=== PATIENT | male | born 1985 | race Caucasian/White ===

== ENCOUNTER 2016-11-30 18:03 | Emergency (ER) | payer SELFPAY ==
[2016-11-30] MEDS ORDERED: ASPIRIN 81 MG CHEWABLE TABLET PO ONE (18:34)
[2016-11-30] MEDS ORDERED: 0.9 % SODIUM CHLORIDE 1,000 ML BAG IV ONE (18:37)
[2016-11-30 18:49] LABS: BASO % 0.5 % (0-6); HEMATOCRIT 46.3 % (42.0-52.0); HEMOGLOBIN 15.7 gm/dl (14.0-18.0); LYMPH % 29.4 % (16-45); MEAN CELL VOLUME 86.4 fl (81-97); MEAN CORPUSCULAR HEMOGLOBIN 29.3 pg (27-33); MEAN CORPUSCULAR HGB CONC 33.9 g/dl (32-36); MEAN PLATELET VOLUME 9.7 fl (7.4-10.4); MONO % 8.1 % (0-9); PLATELET COUNT 345 K/uL (130-400); RED BLOOD COUNT 5.36 M/uL (4.40-5.70); RED CELL DISTRIBUTION WIDTH 13.2 % (11.5-14.5); WHITE BLOOD COUNT W/O DIFF 8.9 K/uL (4.2-12.2)
[2016-11-30 19:00] LABS: ANION GAP 12.2 (7-16); BLOOD UREA NITROGEN 11 mg/dL (9-20); CARBON DIOXIDE 25.8 mmol/L (22-30); CREATINE PHOSPHOKINASE 138 U/L (55-170); CREATININE 0.9 mg/dL (0.66-1.25); EST GLOMERULAR FILTRATION RATE > 60 ml/min; GLUCOSE,RANDOM 105 mg/dL (70-110)
[2016-11-30 19:10] LABS: URINE APPEARANCE CLEAR; URINE BILIRUBIN NEGATIVE (NEGATIVE); URINE BLOOD NEGATIVE (NEGATIVE); URINE COLOR YELLOW; URINE GLUCOSE (UA) NEGATIVE (NEGATIVE); URINE KETONE NEGATIVE (NEGATIVE); URINE LEUKOCYTE ESTERASE NEGATIVE (NEGATIVE); URINE NITRITE NEGATIVE (NEGATIVE); URINE PROTEIN NEGATIVE (NEGATIVE); URINE UROBILINOGEN 0.2 E.U./dL (0.20 - 1.00)
[2016-11-30 19:11] LABS: BARBITURATE SCREEN URINE NOT DETECTED; TRICYCLIC ANTIDEPRESSANT SCRN NOT DETECTED
[2016-11-30 19:12] LABS: AMPHETAMINE SCREEN URINE DETECTED; BENZODIAZEPINE SCREEN URINE NOT DETECTED; COCAINE SCREEN URINE NOT DETECTED; METHADONE SCREEN URINE NOT DETECTED; METHAMPHETAMINE SCREEN DETECTED; OPIATE SCREEN URINE NOT DETECTED; OXYCODONE SCREEN URINE NOT DETECTED; PHENCYCLIDINE SCREEN URINE NOT DETECTED; PROPOXYPHENE SCREEN URINE NOT DETECTED; THC SCREEN URINE DETECTED
[2016-11-30 19:12] LABS: CKMB 2.2 ug/L (0-6)
[2016-11-30 19:13] LABS: TROPONIN I < 0.012 ng/mL (0.00-0.034)
--- NOTE | 2016-11-30 19:18 | Emergency Department Record ---
History of Present Illness - General Chief Complaint: Shortness of breath Stated Complaint: CHEST HEAVINESS/SOB Time Seen by Provider: 11/30/16 18:34 Source: Patient Mode of Arrival: Ambulatory Limitations: No limitations - History of Present Illness Initial Comments: pt comes in c/o sob, cp, l leg numbness. he started feeling like this 24hours ago. he denies back pain. he admits to smoking tobacco and marijuana. he states he has felt out of it and foggy. MD Complaint: Chest pain, Shortness of breath Onset/Timin -: Days(s) Radiation: Other Severity scale (1-10): 4 Consistency: Constant Improves With: Nothing Worsens With: Nothing Associated Symptoms: Cough, Palpitations, Parasthesias, Other Treatments Prior to Arrival: None - Related Data Home Medications Medication Instructions Recorded Confirmed Last Taken No Home Med [NO HOME MEDS] 11/30/16 11/30/16 Unknown Allergies Allergy/AdvReac Type Severity Reaction Status Date / Time methylphenidate HCl Allergy ANAPHYLAXIS Verified 11/30/16 18:19 [From Ritalin] Travel Screening - Travel/Exposure Within Last 30 Days Have you traveled within the last 30 days?: No Review of Systems Reviewed: No additional complaints except as noted below Constitutional: Reports: As per HPI. Denies: Chills, Fever, Malaise, Night sweats, Weakness, Weight change Eyes: Reports: As per HPI. Denies: Eye discharge, Eye pain, Photophobia, Vision change ENT: Reports: As per HPI. Denies: Congestion, Dental pain, Ear pain, Epistaxis , Hearing loss, Throat pain Respiratory: Reports: As per HPI. Denies: Cough, Dyspnea, Hemoptysis, Stridor, Wheezes Cardiovascular: Reports: As per HPI. Denies: Arrhythmia, Chest pain, Dyspnea on exertion, Edema, Murmurs, Orthopnea, Palpitations, Paroxysmal nocturnal dyspnea, Rheumatic Fever, Syncope Endocrine: Reports: As per HPI. Denies: Fatigue, Heat or cold intolerance, Polydipsia, Polyuria Gastrointestinal: Reports: As per HPI. Denies: Abdominal pain, Constipation, Diarrhea, Hematemesis, Hematochezia, Melena, Nausea, Vomiting Genitourinary: Reports: As per HPI. Denies: Dysuria, Frequency, Hematuria, Incontinence, Retention, Testicular pain, Testicular mass, Urgency Musculoskeletal: Reports: As per HPI. Denies: Arthralgia, Back pain, Gout, Joint swelling, Myalgia, Neck pain Skin: Reports: As per HPI. Denies: Bruising, Change in color, Change in hair/ nails, Lesions, Pruritus, Rash Neurological: Reports: As per HPI. Denies: Abnormal gait, Confusion, Headache, Numbness, Paresthesias, Seizure, Tingling, Tremors, Vertigo, Weakness Psychiatric: Reports: As per HPI. Denies: Anxiety, Auditory hallucinations, Depression, Homicidal thoughts, Suicidal thoughts, Visual hallucinations Hematological/Lymphatic: Reports: As per HPI. Denies: Anemia, Blood Clots, Easy bleeding, Easy bruising, Swollen glands Past Medical History - SOCIAL HISTORY Smoking Status: Current every day smoker Alcohol Use: Rare Drug Use Detail:: Marijuana - RESPIRATORY Hx Respiratory Disorders: No - CARDIOVASCULAR Hx Cardio Disorders: No - NEURO Hx Neuro Disorders: No - GI Hx GI Disorders: No - Hx Genitourinary Disorders: No - ENDOCRINE Hx Endocrine Disorders: No - MUSCULOSKELETAL Hx Musculoskeletal Disorders: No - PSYCH Hx Psych Problems: No - HEMATOLOGY/ONCOLOGY Hx Hematology/Oncology Disorders: No Family Medical History Any Significant Family History?: Yes Hx Diabetes: Grandparents Physical Exam - General General Appearance: Alert, Oriented x3, Cooperative, Mild distress - Head Head exam: Normal inspection - Eye Eye exam: Normal appearance, PERRL, EOMI Pupils: Normal accommodation - ENT ENT exam: Normal exam, Mucous membranes moist, Normal external ear exam, Normal orophraynx, TM's normal bilaterally Ear exam: Normal external inspection. negative: External canal tenderness Nasal Exam: Normal inspection. negative: Discharge, Sinus tenderness Mouth exam: Normal external inspection, Tongue normal Teeth exam: Normal inspection. negative: Dental caries Throat exam: Normal inspection. negative: Tonsillar erythema, Tonsillar exudate - Neck Neck exam: Normal inspection, Full ROM. negative: Tenderness - Respiratory Respiratory exam: Normal lung sounds bilaterally. negative: Respiratory distress - Cardiovascular Cardiovascular Exam: Normal rhythm, Normal heart sounds, Tachycardia - GI/Abdominal GI/Abdominal exam: Soft, Normal bowel sounds. negative: Tenderness - Rectal Rectal exam: Deferred - exam: Deferred - Extremities Extremities exam: Normal inspection, Full ROM, Normal capillary refill. negative: Tenderness - Back Back exam: Reports: Normal inspection, Full ROM. Denies: Muscle spasm, Rash noted, Tenderness - Neurological Neurological exam: Alert, CN II-XII intact, Normal gait, Oriented X3, Other ( decreased sensation on lower leg more on medial aspect) - Psychiatric Psychiatric exam: Normal affect, Normal mood - Skin Skin exam: Dry, Intact, Normal color, Warm Course Vital Signs 11/30/16 18:11 Temperature 97.9 F Pulse Rate 122 H Respiratory 18 Rate Blood Pressure 155/116 Pulse Ox 99 - Reevaluation(s) Reevaluation #1: 11/30/16 19:24 care is being turned over to dr de anda Medical Decision Making - Lab Data Result diagrams: 11/30/16 18:20 11/30/16 18:20 Lab Results 11/30/16 11/30/16 11/30/16 Range/Units 18:20 18:20 18:20 WBC 8.9 (4.2-12.2) K/uL RBC 5.36 (4.40-5.70) M/uL Hgb 15.7 (14.0-18.0) gm/dl Hct 46.3 (42.0-52.0) % MCV 86.4 (81-97) fl MCH 29.3 (27-33) pg MCHC 33.9 (32-36) g/dl RDW 13.2 (11.5-14.5) % Plt Count 345 (130-400) K/uL MPV 9.7 (7.4-10.4) fl Gran % 60.0 (47-80) % Lymphocytes % 29.4 (16-45) % Monocytes % 8.1 (0-9) % Eosinophils % 2.0 (0-6) % Basophils % 0.5 (0-6) % D-Dimer < 0.19 (0-0.59) mg/L FEU Sodium 137 (136-145) mmol/L Potassium 3.6 (3.5-5.1) mmol/L Chloride 99 (98-107) mmol/L Carbon Dioxide 25.8 (22-30) mmol/L Anion Gap 12.2 (7-16) BUN 11 (9-20) mg/dL Creatinine 0.9 (0.66-1.25) mg/dL Estimated GFR > 60 ml/min Random Glucose 105 (70-110) mg/dL Calcium 9.5 (8.5-10.1) mg/dL Creatine Kinase 138 (55-170) U/L CK-MB (CK-2) 2.2 (0-6) ug/L Troponin I < 0.012 (0.00-0.034) ng/mL Urine Color Urine Appearance Urine pH (5.0-8.0) Ur Specific [place] (1.002-1.030) Urine Protein (NEGATIVE) Urine Glucose (UA) (NEGATIVE) Urine Ketones (NEGATIVE) Urine Blood (NEGATIVE) Urine Nitrite (NEGATIVE) Urine Bilirubin (NEGATIVE) Urine Urobilinogen (0.20 - 1.00) E.U./dL Ur Leukocyte Esterase (NEGATIVE) Urine Opiates Screen Ur Oxycodone Screen Urine Methadone Screen Ur Propoxyphene Screen Ur Barbituates Screen Ur Tricyclics Screen Ur Phencyclidine Scrn Ur Amphetamine Screen U Methamphetamines Scrn U Benzodiazepines Scrn Urine Cocaine Screen Urine Cannabis Screen 11/30/16 11/30/16 Range/Units 19:05 19:05 WBC (4.2-12.2) K/uL RBC (4.40-5.70) M/uL Hgb (14.0-18.0) gm/dl Hct (42.0-52.0) % MCV (81-97) fl MCH (27-33) pg MCHC (32-36) g/dl RDW (11.5-14.5) % Plt Count (130-400) K/uL MPV (7.4-10.4) fl Gran % (47-80) % Lymphocytes % (16-45) % Monocytes % (0-9) % Eosinophils % (0-6) % Basophils % (0-6) % D-Dimer (0-0.59) mg/L FEU Sodium (136-145) mmol/L Potassium (3.5-5.1) mmol/L Chloride (98-107) mmol/L Carbon Dioxide (22-30) mmol/L Anion Gap (7-16) BUN (9-20) mg/dL Creatinine (0.66-1.25) mg/dL Estimated GFR ml/min Random Glucose (70-110) mg/dL Calcium (8.5-10.1) mg/dL Creatine Kinase (55-170) U/L CK-MB (CK-2) (0-6) ug/L Troponin I (0.00-0.034) ng/mL Urine Color Yellow Urine Appearance Clear Urine pH 6.5 (5.0-8.0) Ur Specific [place] 1.015 (1.002-1.030) Urine Protein Negative (NEGATIVE) Urine Glucose (UA) Negative (NEGATIVE) Urine Ketones Negative (NEGATIVE) Urine Blood Negative (NEGATIVE) Urine Nitrite Negative (NEGATIVE) Urine Bilirubin Negative (NEGATIVE) Urine Urobilinogen 0.2 (0.20 - 1.00) E.U./dL Ur Leukocyte Esterase Negative (NEGATIVE) Urine Opiates Screen Not detected Ur Oxycodone Screen Not detected Urine Methadone Screen Not detected Ur Propoxyphene Screen Not detected Ur Barbituates Screen Not detected Ur Tricyclics Screen Not detected Ur Phencyclidine Scrn Not detected Ur Amphetamine Screen Detected U Methamphetamines Scrn Detected U Benzodiazepines Scrn Not detected Urine Cocaine Screen Not detected Urine Cannabis Screen Detected Disposition Forms: Patient Portal Access
--- NOTE | 2016-11-30 20:40 | Emergency Department Record ---
History of Present Illness - General Chief Complaint: Shortness of breath Stated Complaint: CHEST HEAVINESS/SOB Time Seen by Provider: 11/30/16 18:34 Source: Patient Mode of Arrival: Ambulatory Limitations: No limitations - History of Present Illness Onset/Timin -: Days(s) Radiation: Other Severity scale (1-10): 4 Consistency: Constant Improves With: Nothing Worsens With: Nothing Associated Symptoms: Cough, Palpitations, Parasthesias, Other Treatments Prior to Arrival: None - Related Data Home Medications Medication Instructions Recorded Confirmed Last Taken No Home Med [NO HOME MEDS] 11/30/16 11/30/16 Unknown Allergies Allergy/AdvReac Type Severity Reaction Status Date / Time methylphenidate HCl Allergy ANAPHYLAXIS Verified 11/30/16 18:19 [From Ritalin] Travel Screening - Travel/Exposure Within Last 30 Days Have you traveled within the last 30 days?: No Review of Systems Constitutional: Reports: As per HPI. Denies: Chills, Fever, Malaise, Night sweats, Weakness, Weight change Eyes: Reports: As per HPI. Denies: Eye discharge, Eye pain, Photophobia, Vision change ENT: Reports: As per HPI. Denies: Congestion, Dental pain, Ear pain, Epistaxis , Hearing loss, Throat pain Respiratory: Reports: As per HPI. Denies: Cough, Dyspnea, Hemoptysis, Stridor, Wheezes Cardiovascular: Reports: As per HPI. Denies: Arrhythmia, Chest pain, Dyspnea on exertion, Edema, Murmurs, Orthopnea, Palpitations, Paroxysmal nocturnal dyspnea, Rheumatic Fever, Syncope Endocrine: Reports: As per HPI. Denies: Fatigue, Heat or cold intolerance, Polydipsia, Polyuria Gastrointestinal: Reports: As per HPI. Denies: Abdominal pain, Constipation, Diarrhea, Hematemesis, Hematochezia, Melena, Nausea, Vomiting Genitourinary: Reports: As per HPI. Denies: Dysuria, Frequency, Hematuria, Incontinence, Retention, Testicular pain, Testicular mass, Urgency Musculoskeletal: Reports: As per HPI. Denies: Arthralgia, Back pain, Gout, Joint swelling, Myalgia, Neck pain Skin: Reports: As per HPI. Denies: Bruising, Change in color, Change in hair/ nails, Lesions, Pruritus, Rash Neurological: Reports: As per HPI. Denies: Abnormal gait, Confusion, Headache, Numbness, Paresthesias, Seizure, Tingling, Tremors, Vertigo, Weakness Psychiatric: Reports: As per HPI. Denies: Anxiety, Auditory hallucinations, Depression, Homicidal thoughts, Suicidal thoughts, Visual hallucinations Hematological/Lymphatic: Reports: As per HPI. Denies: Anemia, Blood Clots, Easy bleeding, Easy bruising, Swollen glands Past Medical History - SOCIAL HISTORY Smoking Status: Current every day smoker Alcohol Use: Rare Drug Use Detail:: Marijuana - RESPIRATORY Hx Respiratory Disorders: No - CARDIOVASCULAR Hx Cardio Disorders: No - NEURO Hx Neuro Disorders: No - GI Hx GI Disorders: No - Hx Genitourinary Disorders: No - ENDOCRINE Hx Endocrine Disorders: No - MUSCULOSKELETAL Hx Musculoskeletal Disorders: No - PSYCH Hx Psych Problems: No - HEMATOLOGY/ONCOLOGY Hx Hematology/Oncology Disorders: No Family Medical History Any Significant Family History?: Yes Hx Diabetes: Grandparents Physical Exam - General Limitations: No limitations Course Vital Signs 11/30/16 11/30/16 18:11 19:15 Temperature 97.9 F Pulse Rate 122 H Pulse Rate [ 114 H Pulse Ox Probe] Respiratory 18 16 Rate Blood Pressure 155/116 Blood Pressure 147/102 [Left Arm] Pulse Ox 99 99 - Reevaluation(s) Reevaluation #1: 11/30/16 20:36 Patient seen and examined, reports multiple complaints including: heaviness to the LUE/LLE, right sided headache and "blurry vision", chest pain and shortness of breath, and cold limbs x 4. On examination, patient's distal radial and DPPs are all strong and equal, adobe ball mixer strength is 5/5 and symmetric (with encouragement), no focal weakness on examination, and no evidence for aortic dissection on examination. Patient denies any recent drug use other than marijuana. Pulse remains at 115 on re- examination, 2nd liter beginning to infuse, D-dimer negative. Will plan for second troponin at 22:20. Reevaluation #2: 11/30/16 22:27 Patient is back from CTA, nothing acute identified, minimal calcification to the aortic bifurcation is present. No evidence for bony destruction or lesion within spine. Patient has been up to the patient refrigerator several times as well. Awaiting 2nd troponin. Reevaluation #3: 11/30/16 22:47 Second Troponin has resulted and is negative. Repeat pulse 88. Patient is resting comfortably listening to music on his mobile phone. Patient was updated on all results and the importance of follow-up as more detailed testing maybe needed. Patient appears stable for discharge at this time with instructions for follow-up. 11/30/16 22:52 Medical Decision Making - Lab Data Result diagrams: 11/30/16 18:20 11/30/16 18:20 Lab Results 11/30/16 11/30/16 11/30/16 Range/Units 18:20 18:20 18:20 WBC 8.9 (4.2-12.2) K/uL RBC 5.36 (4.40-5.70) M/uL Hgb 15.7 (14.0-18.0) gm/dl Hct 46.3 (42.0-52.0) % MCV 86.4 (81-97) fl MCH 29.3 (27-33) pg MCHC 33.9 (32-36) g/dl RDW 13.2 (11.5-14.5) % Plt Count 345 (130-400) K/uL MPV 9.7 (7.4-10.4) fl Gran % 60.0 (47-80) % Lymphocytes % 29.4 (16-45) % Monocytes % 8.1 (0-9) % Eosinophils % 2.0 (0-6) % Basophils % 0.5 (0-6) % D-Dimer < 0.19 (0-0.59) mg/L FEU Sodium 137 (136-145) mmol/L Potassium 3.6 (3.5-5.1) mmol/L Chloride 99 (98-107) mmol/L Carbon Dioxide 25.8 (22-30) mmol/L Anion Gap 12.2 (7-16) BUN 11 (9-20) mg/dL Creatinine 0.9 (0.66-1.25) mg/dL Estimated GFR > 60 ml/min Random Glucose 105 (70-110) mg/dL Calcium 9.5 (8.5-10.1) mg/dL Creatine Kinase 138 (55-170) U/L CK-MB (CK-2) 2.2 (0-6) ug/L Troponin I < 0.012 (0.00-0.034) ng/mL TSH (0.465-4.68) uIU/ml Urine Color Urine Appearance Urine pH (5.0-8.0) Ur Specific [place] (1.002-1.030) Urine Protein (NEGATIVE) Urine Glucose (UA) (NEGATIVE) Urine Ketones (NEGATIVE) Urine Blood (NEGATIVE) Urine Nitrite (NEGATIVE) Urine Bilirubin (NEGATIVE) Urine Urobilinogen (0.20 - 1.00) E.U./dL Ur Leukocyte Esterase (NEGATIVE) Urine Opiates Screen Ur Oxycodone Screen Urine Methadone Screen Ur Propoxyphene Screen Ur Barbituates Screen Ur Tricyclics Screen Ur Phencyclidine Scrn Ur Amphetamine Screen U Methamphetamines Scrn U Benzodiazepines Scrn Urine Cocaine Screen Urine Cannabis Screen 11/30/16 11/30/16 11/30/16 Range/Units 18:20 19:05 19:05 WBC (4.2-12.2) K/uL RBC (4.40-5.70) M/uL Hgb (14.0-18.0) gm/dl Hct (42.0-52.0) % MCV (81-97) fl MCH (27-33) pg MCHC (32-36) g/dl RDW (11.5-14.5) % Plt Count (130-400) K/uL MPV (7.4-10.4) fl Gran % (47-80) % Lymphocytes % (16-45) % Monocytes % (0-9) % Eosinophils % (0-6) % Basophils % (0-6) % D-Dimer (0-0.59) mg/L FEU Sodium (136-145) mmol/L Potassium (3.5-5.1) mmol/L Chloride (98-107) mmol/L Carbon Dioxide (22-30) mmol/L Anion Gap (7-16) BUN (9-20) mg/dL Creatinine (0.66-1.25) mg/dL Estimated GFR ml/min Random Glucose (70-110) mg/dL Calcium (8.5-10.1) mg/dL Creatine Kinase (55-170) U/L CK-MB (CK-2) (0-6) ug/L Troponin I (0.00-0.034) ng/mL TSH 0.34 L (0.465-4.68) uIU/ml Urine Color Yellow Urine Appearance Clear Urine pH 6.5 (5.0-8.0) Ur Specific [place] 1.015 (1.002-1.030) Urine Protein Negative (NEGATIVE) Urine Glucose (UA) Negative (NEGATIVE) Urine Ketones Negative (NEGATIVE) Urine Blood Negative (NEGATIVE) Urine Nitrite Negative (NEGATIVE) Urine Bilirubin Negative (NEGATIVE) Urine Urobilinogen 0.2 (0.20 - 1.00) E.U./dL Ur Leukocyte Esterase Negative (NEGATIVE) Urine Opiates Screen Not detected Ur Oxycodone Screen Not detected Urine Methadone Screen Not detected Ur Propoxyphene Screen Not detected Ur Barbituates Screen Not detected Ur Tricyclics Screen Not detected Ur Phencyclidine Scrn Not detected Ur Amphetamine Screen Detected U Methamphetamines Scrn Detected U Benzodiazepines Scrn Not detected Urine Cocaine Screen Not detected Urine Cannabis Screen Detected Disposition Disposition: Discharge Clinical Impression: Chest pain Qualifiers: Chest pain type: unspecified Qualified Code(s): R07.9 - Chest pain, unspecified Disposition: Home, Self-Care Condition: (2) Stable Instructions: Chest Pain (ED) Additional Instructions: Return to ED if your symptoms worsen or if you have any concerns. Follow-up with a provider from the referral list given in ED. Forms: Patient Portal Access Time of Disposition: 22:48
[2016-11-30] MEDS ORDERED: ACETAMINOPHEN 325 MG TAB PO ONE (22:19)
--- NOTE | 2016-12-03 07:15 | CT SCAN REPORT ---
EXAM: HEAD CT WITHOUT CONTRAST HISTORY: ACUTE LEFT SIDE NUMBNESS. TECHNIQUE: Contiguous axial images from the cerebral convexities to the foramen magnum were obtained without contrast. Comparison: None. Hand dominance: Unknown. FINDINGS: The brain volume is normal. No intracranial hemorrhage, mass effect , or midline shift. No CT evidence of acute infarct. The ventricles, basal cisterns and sulci are within normal limits. The osseous structures, soft tissues, and paranasal sinuses are unremarkable. IMPRESSION: NORMAL HEAD CT. JOB NUMBER: [id number] MTDD
--- NOTE | 2016-12-03 07:16 | RADIOLOGY REPORT ---
EXAM: CHEST, TWO VIEWS HISTORY: ACUTE LEFT LEG NUMBNESS, CHEST HEAVINESS. TECHNIQUE: Two views of the chest were obtained. Comparison: None. FINDINGS: The lungs are clear. The cardiomediastinal silhouette, diaphragm, and osseous structures are unremarkable for age. IMPRESSION: NEGATIVE CHEST EXAMINATION. JOB NUMBER: [id number] MTDD
--- NOTE | 2016-12-03 07:28 | CT ANGIOGRAM REPORT ---
EXAM: CTA OF THE CHEST AND ABDOMEN HISTORY: LOSS OF SENSATION FROM LEFT HIP DOWN TO THE LEFT FOOT FOR ONE DAY. SHORTNESS OF BREATH WITH EXERTION. TECHNIQUE: Contiguous axial images from the thoracic inlet to the anterior superior iliac crest were obtained after the uneventful intravenous administration of 100 ml of Omnipaque 350. Sagittal and coronal two dimensional MIP as well as 3D/MIP reformatted images were obtained for better anatomic delineation. Comparison: Chest x-ray 11/30/16. FINDINGS: The aorta is patent throughout with no evidence of aortic dissection. Minimal calcification of the aortic bifurcation and common iliac arteries with no stenosis. The pulmonary arteries are grossly patent. The diameter of the aorta is as follows: Aortic annulus: 2.4 cm Coronary sinus: 2.6 cm Sinotubular junction: 2.6 cm Mid ascending thoracic aorta: 2.9 cm Level of the brachiocephalic artery: 2.7 cm Level of the left subclavian artery: 2.5 cm Mid descending thoracic aorta: 2.1 cm Level of diaphragmatic hiatus: 2.1 cm Level of the right renal artery: 1.7 cm Mid infrarenal abdominal aorta: 1.5 cm Aortic bifurcation: 1.7 cm Right common iliac artery: 0.9 cm Left common iliac artery: 0.9 cm The lungs are clear. The heart is not enlarged. There is no pericardial effusion. No enlarged lymph nodes in the thorax. No coronary artery calcification. The upper abdomen is unremarkable. No lytic or blastic lesion. IMPRESSION: 1. NO EVIDENCE OF AORTIC DISSECTION. MINIMAL CALCIFICATION OF THE AORTIC BIFURCATION AND COMMON ILIAC ARTERIES. 2. NO GROSS PE. 3. NO ACUTE PROCESS OF THE THORAX OR ABDOMEN. JOB NUMBER: [id number] MTDD
== END 2016-11-30 23:08 | disposition home or self-care (01) ==
LOC: ER 18:03
DX: R07.89 Other chest pain (principal); R06.02 Shortness of breath; R20.0 Anesthesia of skin; H53.8 Other visual disturbances; R51 Headache; R05 Cough; F17.210 Nicotine dependence, cigarettes, uncomplicated; Z79.899 Other long term (current) drug therapy
CPT/HCPCS: 99284 ×2; 82550; 85025; 82553; 84484; 80048; 81003; 84443; 85379; 71020; 71275; 74175; 70450; 93005; 93010; G0477; Q9967; J7030